=== PATIENT | female | born 1980 | race Caucasian/White ===

== ENCOUNTER → 2017-10-31 | Outpatient (CLI) | payer BC | END | disposition home or self-care (01) | LOC: KCIC US 14:34 | DX: O46.8X1 Other antepartum hemorrhage, first trimester (principal); Z3A.08 8 weeks gestation of pregnancy | CPT/HCPCS: 76801; 76817 ==

== ENCOUNTER → 2017-12-06 | Outpatient (CLI) | payer BC ==
--- NOTE | 2017-12-06 16:20 | KCIC ---
Early OB ultrasound History: Vaginal bleeding in . Uncertain of dates Comparison: Ultrasound OB October 31, 2017. Technique: Transabdominal imaging was performed. Findings: Single live intrauterine is identified with gestational sac, yolk sac, and embryo seen. Mean crown-rump length is 4.48 cm corresponding to 11 weeks 2 days. Estimated date of delivery based on this measurement is June 25, 2018. Embryonic heart motion is 152 bpm. Gestational sac appears regular. No subchorionic hemorrhage is identified. Right ovary measures 2.2 x 3.0 x 1.8 cm and is unremarkable. Left ovary measures 2.8 x 1.8 x 2.3 cm and is unremarkable. Both ovaries demonstrate normal vascular flow upon Doppler interrogation and are without evidence of torsion. Impression: 1. Single live intrauterine . Average ultrasound age is 11 weeks 2 days. Estimated date of delivery is June 25, 2018. There has been appropriate interval growth. Electronically signed by: Chavez Walton MD (12/06/2017 4:17 PM) [email or web address]
== END | disposition home or self-care (01) ==
LOC: KCIC US 07:50
PROVIDERS: ATTEND Family Medicine
DX: O46.8X1 Other antepartum hemorrhage, first trimester (principal); Z3A.11 11 weeks gestation of pregnancy
CPT/HCPCS: 76801

== ENCOUNTER → 2018-02-13 | Outpatient (CLI) | payer OTHER ==
--- NOTE | 2018-02-13 17:44 | KCIC ---
OB ULTRASOUND, > 14 WEEKS Clinical Indication: Supervision of normal . Anatomy and weight. Comparison: None. Technique: Multiple grayscale images, color Doppler, and M-mode images of the uterus are obtained. Findings: There is a single intrauterine gestation in breech presentation. The placenta is anterior in location without evidence of placenta previa. The amount of amniotic fluid appears appropriate. Amniotic fluid index is 15.2 cm. Cervical length is 4 cm. Biometrical data: BPD = 4.9 cm for 20 weeks 5 days. HC = 18.4 cm for 20 weeks 5 days. AC = 16.8 cm for 21 weeks 6 days. FL = 3.4 cm for 20 weeks 5 days. HC/AC ratio = 1.10. Overall, the estimated sonographic gestational age is 21 weeks and 0 days for an estimated date of delivery of June 26, 2018. Estimated weight is 409 +/- 61 grams. A 4 chamber heart is identified with positive cardiac activity. The estimated heart rate is 135 beats per minute. Bilateral upper and lower extremities are identified. There is a three-vessel cord with cord insertion visualized. stomach and urinary bladder are identified. Both kidneys are seen. Question bilateral pelviectasis. The visualized spine and brain are unremarkable. IMPRESSION: 1. Single live intrauterine gestation with estimated sonographic gestational age of 21 weeks and 0 days. 2. Question bilateral pelviectasis. Recommend attention on subsequent imaging. Electronically signed by: Joaquín Khalil MD (02/13/2018 5:40 PM) [id number]
== END | disposition home or self-care (01) ==
LOC: KCIC US 08:03
PROVIDERS: ATTEND Family Medicine
DX: O32.1XX0 Maternal care for breech presentation, not applicable or unspecified (principal); Z3A.21 21 weeks gestation of pregnancy
CPT/HCPCS: 76805

== ENCOUNTER → 2018-03-10 | Outpatient (CLI) | payer OTHER ==
--- NOTE | 2018-03-10 17:28 | KCIC ---
Indication: Follow-up kidney TECHNIQUE: Ultrasound OB COMPARISON: 02/13/2018 FINDINGS: Cervical length measures 4 cm and is closed. Single intrauterine seen in breech presentation the time of scanning with heart rate of 143 bpm. Placenta is anterior in position. Face is seen. Bilateral dilated renal pelvis is seen which is stable from previous exam. Three-vessel cord is seen. The femoral length measures 4.46 cm corresponding to gestation age of 24 weeks 5 days. Abdominal circumference measures 20.21 cm corresponding to gestation age of 24 weeks 6 days. Head circumference measures 22.76 m corresponding to gestation age of 24 weeks 6 days. Biparietal diameter measures 5.85 cm corresponding to gestation age of 24 weeks 0 days. Amniotic fluid index measures 10.1 cm. Estimated weight of 728 g. movement was seen. IMPRESSION: 1. Single live viable intrauterine corresponding to gestation age of 24 weeks 4 days with due date of 06/26/2018. 2. Stable bilateral renal pelviectasis. Electronically signed by: Jam Yang DO (03/10/2018 5:25 PM) [id number]
== END | disposition home or self-care (01) ==
LOC: KCIC US 07:56
PROVIDERS: ATTEND Family Medicine
DX: O09.892 Supervision of other high risk pregnancies, second trimester (principal); Z3A.24 24 weeks gestation of pregnancy
CPT/HCPCS: 76816

== ENCOUNTER → 2018-05-30 | Outpatient (CLI) | payer OTHER ==
--- NOTE | 2018-05-30 17:35 | KCIC ---
Examination: OB > 14 WKS W/TV History: Small for dates Comparison/Correlation: 04/03/2018 OB ultrasound exam Findings: Transabdominal OB ultrasound exam was performed. Maternal cervical length is 3.58 cm. Average ultrasound age of 35 weeks 4 days is noted. Ultrasound EDC is 07/01/2018. Estimated weight is 2702 g +/- 20 g. Cephalic index is 88.7 which is above normal. Head circumference to abdominal circumference ratio is 0.98 which is within normal limits. Femur length to biparietal diameter ratio 78.4 which is within normal limits. Femur length to head circumference ratio is 22.3 and this is within normal limits. Femur length to abdominal circumference ratio is 21.8 and this is within normal limits. Biparietal diameter is 8.8 cm corresponding to 35 weeks 5 days Head circumference is 31.1 cm corresponding to 34 weeks 5 days Abdominal circumference is 31.7 cm corresponding to 35 weeks 5 days Femur length is 6.9 cm corresponding to 35 weeks 4 days Amniotic fluid index is 11.1. heart rate is 1 47 bpm. Impression: Single living intrauterine gestation with average ultrasound age of 35 weeks 4 days. This is 5 days less than clinical age by last menstrual period. Mildly less than expected growth in the interval compared 04/03/2018 ultrasound exam. Electronically signed by: Marky Mcmahon MD (05/30/2018 5:31 PM) [facility]
== END | disposition home or self-care (01) ==
LOC: KCIC US 14:49
PROVIDERS: ATTEND Family Medicine
DX: O36.5930 Maternal care for other known or suspected poor fetal growth, third trimester, not applicable or unspecified (principal); O09.523 Supervision of elderly multigravida, third trimester; Z3A.35 35 weeks gestation of pregnancy
CPT/HCPCS: 76805; 76817

== ENCOUNTER 2018-06-12 16:45 | Observation (INO) | payer OTHER ==
[~2018-06-12] VITALS: Ht 172.7 cm; Wt 78.0 kg
--- NOTE | 2018-06-12 18:32 | RAD ---
Limited OB ultrasound greater than 14 weeks 06/12/2018 Clinical History: Near term with IUGR. Technique: A real-time ultrasound examination of the gravid uterus was performed. Multiple images were obtained. Findings: Comparison study is dated 05/30/2018. There is a single living IUP. The fetus is in a cephalic position. cardiac and somatic activity is seen. The heart rate is 145 beats per minutes. The maternal cervix is not visualized. The placenta is anterior. No abnormality is seen. The amniotic fluid volume is within normal limits. The CHANDLER measures 9.3 cm. Neither maternal ovary is visualized. The following measurements were obtained: BPD 9.53cm 38 weeks 6 days HC 33.48 cm 38weeks to days AC 33.73 cm 37weeks 4 days FL 7.54 cm 38 weeks 4 days The estimated gestational age by ultrasound is 38 weeks 2 days plus or minus a standard deviation of 21 days. The estimated date of delivery by ultrasound on today's study is 06/24/2018. Since the previous examination there has been appropriate interval growth. The estimated weight is 3391 grams +/- 502 grams (7 lbs. 8 oz.). Detailed evaluation of anatomy was not performed due to the advanced age of this gestation. Impression: Single living IUP with an estimated gestational age by ultrasound of 38 weeks 2 days +/- a standard deviation of 21 days. Since the previous examination there has been appropriate interval growth. Electronically signed by: Aurelio Tao MD (06/12/2018 6:30 PM) [facility]
--- NOTE | 2018-06-12 18:34 | RAD ---
Biophysical profile 06/12/2018 Clinical History: Near-term with history of IUGR. Technique: A real-time ultrasound examination of the gravid uterus was performed up to a 30 minute period of observation by the ambulatory technologist. The following parameters were scored at 2 point scale: respiration, tone, breathing and quantitative amniotic fluid volume. Multiple images were obtained. Findings: There is a single living IUP. The fetus is in a cephalic position. The placenta is anterior. Amniotic fluid volume is within normal limits. heart rate is 145 bpm. The CHANDLER measures 9.3 cm. respiration, movement, tone and qualitative amniotic fluid volume score 2 out of 2 points for an 8 out of 8 biophysical profile. Impression: 8 out of 8 biophysical profile. Electronically signed by: Aurelio Tao MD (06/12/2018 6:32 PM) [facility]
== END 2018-06-12 18:20 | disposition home or self-care (01) ==
LOC: US 16:45 → 3 SO LND 17:37
PROVIDERS: ADMIT Family Medicine; ATTEND Family Medicine
DX: O09.93 Supervision of high risk pregnancy, unspecified, third trimester (principal); Z3A.38 38 weeks gestation of pregnancy; Z88.2 Allergy status to sulfonamides; Z88.1 Allergy status to other antibiotic agents
CPT/HCPCS: 76805; 76819; G0379; 59025

== ENCOUNTER 2018-06-20 16:31 | Observation (INO) | payer OTHER ==
--- NOTE | 2018-06-20 17:30 | RAD ---
Indication: Intrauterine growth retardation. Follow-up. TECHNIQUE: Ultrasound for biophysical profile. COMPARISON: 06/12/2018 FINDINGS: Single intrauterine seen in cephalic presentation with heart rate of 137 bpm. Placenta lies anterior in position. The biparietal diameter measures 9.67 cm corresponding to gestation age of 39 weeks 4 days. The head circumference measures 34.11 cm corresponding to gestation age of 39 weeks 2 days. The abdominal circumference measures 34.41 cm corresponding to gestation age of 38 weeks 2 days. The femoral length measures 7.54 cm corresponding to gestation age of 38 weeks 4 days. Estimated weight of 3551 g +/- 5 126 g. Biophysical profile score: breathing movements 2 out of 2. motion 2 out of 2. tone 2 out of 2. Amniotic fluid volume 2 out of 2. IMPRESSION: 1. Single viable live intrauterine with estimated gestation age of 39 weeks 0 day and due date of 06/27/2018. 2. Biophysical profile score 8 out of 8. Electronically signed by: Jam Yang DO (06/20/2018 5:27 PM) [facility]
== END 2018-06-20 18:15 | disposition home or self-care (01) ==
LOC: 3 SO LND 16:31
PROVIDERS: ADMIT Family Medicine; ATTEND Family Medicine
DX: O09.93 Supervision of high risk pregnancy, unspecified, third trimester (principal); Z3A.39 39 weeks gestation of pregnancy
CPT/HCPCS: 76819; G0378; G0379; 59025

== ENCOUNTER 2018-06-23 18:30 | Observation (INO) | payer OTHER ==
[2018-06-23 20:43] LABS: BILIRUBIN,URINE NEGATIVE (NEG); CLARITY,URINE CLEAR; COLOR,URINE YELLOW; NITRITE,URINE NEGATIVE (NEG); PROTEIN,URINE NEGATIVE (NEG-TRACE); UROBILINOGEN,URINE 0.2 mg/dL (0.2 mg/dL)
[2018-06-23 20:53] LABS: BACTERIA,URINE FEW /HPF (0-FEW); RBC,URINE 0 /HPF (0-2); SQUAMOUS EPITHELIAL CELL,UR MOD /LPF
--- NOTE | 2018-06-23 21:24 | RAD ---
Examination: BIOPHYS PROFILE W/O NON STRESS History: bi weekly BPP
high risk preg
multiple miscarriages

6 out 8
hr 127
fluid 14.0
cephalic postiion Comparison/Correlation: 06/20/2018 biophysical profile exam Findings: Limited ultrasound exam was performed for assessment of biophysical profile. Intrauterine gestation with clinical age of 39 weeks 4 days and EDC of 06/26/2018 is present. Amniotic fluid index of 14 is noted. heart rate is 127 bpm. tone 2 breathing 2 movements 0 Amniotic fluid 2 Total score: 6 Anteriorly located placenta is present. Impression: Single living intrauterine gestation with cephalic lie. Biophysical profile total score of 6. Adequate motion is not seen with score of 0. This is decreased compared to previous biophysical profile score of 8 on 06/20/2018. Electronically signed by: Marky Mcmahon MD (06/23/2018 9:21 PM) [facility]
== END 2018-06-23 20:35 | disposition home or self-care (01) ==
LOC: 3 SO LND 18:30
PROVIDERS: ADMIT Family Medicine; ATTEND Family Medicine
DX: Z34.93 Encounter for supervision of normal pregnancy, unspecified, third trimester (principal); Z3A.39 39 weeks gestation of pregnancy
CPT/HCPCS: 76819; 81001; G0378; G0379

== ENCOUNTER 2018-06-26 09:09 | Observation (INO) | payer OTHER | END 2018-06-26 10:50 | disposition home or self-care (01) | LOC: 3 SO LND 09:09 | PROVIDERS: ADMIT Family Medicine; ATTEND Family Medicine | DX: O09.93 Supervision of high risk pregnancy, unspecified, third trimester (principal); O48.0 Post-term pregnancy; Z3A.40 40 weeks gestation of pregnancy | CPT/HCPCS: G0378; G0379; 59025 ==

== ENCOUNTER → 2018-06-26 | Outpatient (CLI) | payer OTHER ==
--- NOTE | 2018-06-26 10:22 | RAD ---
EXAM: biophysical profile. HISTORY: Intrauterine growth restriction. TECHNIQUE: Sonographic imaging of a gravid uterus was performed. COMPARISON: 06/23/2018. FINDINGS: There is a single intrauterine fetus in cephalic presentation with a heart rate of 141 bpm. There is normal breathing motion, body motion and tone and there is normal anatomic fluid volume, for a total biophysical profile of 11/30. The amniotic fluid index is 10.2 cm. There is an anterior placenta without evidence of placenta previa. The biparietal diameter is 9.67 cm, corresponding with 39 weeks and 4 days and the 80th percentile. The head circumference is 34.52 cm, corresponding with 40 weeks and 0 days and the 46th percentile. The abdominal circumference is 35.54 cm, corresponding with 39 weeks and 3 days and the 62nd percentile. The femoral length is 7.72 cm, corresponding with 39 weeks and 3 days and the 49th percentile. The estimated gestational age based on combined ultrasound measurements is 39 weeks and 4 days and the estimated weight is 3813 g. This corresponds with the 72nd percentile for an estimated gestational age based on LMP of 40 weeks and 0 days. The cephalic index is elevated at 85.6. This maybe due to measurement error or slight brachycephaly. The anatomy is not formally assessed. The cervix is obscured. IMPRESSION: 1. Single intrauterine fetus in cephalic presentation with a heart rate of 141 bpm and gestational age based on ultrasound measurements of 39 weeks and 4 days. The estimated weight is at the 72nd percentile for an estimated gestational age based on LMP of 40 weeks and 0 days. There is no sonographic evidence of IUGR. 2. Normal biophysical profile of 11/30. 3. Note is made that the anatomy is not formally assessed on this exam. The previously demonstrated pelviectasis is not assessed on this exam. Electronically signed by: Dariela Mon MD (06/26/2018 10:20 AM) [place] [id number]
== END | disposition home or self-care (01) ==
LOC: US 09:20
PROVIDERS: ATTEND Family Medicine
DX: O36.5930 Maternal care for other known or suspected poor fetal growth, third trimester, not applicable or unspecified (principal); Z3A.39 39 weeks gestation of pregnancy
CPT/HCPCS: 76819

== ENCOUNTER 2018-06-29 23:34 | Inpatient (IN) | payer OTHER ==
[~2018-06-29] VITALS: Ht 172.7 cm; Wt 78.0 kg
[2018-06-29] MEDS ORDERED: IV RINGERS,LACTATED 1000ML 1,000 ML IV PRN (23:45)
[2018-06-30 00:24] LABS: AMNIO PT POSITIVE
[2018-06-30 00:50] LABS: BILIRUBIN,URINE NEGATIVE (NEG); CLARITY,URINE CLOUDY; COLOR,URINE YELLOW; NITRITE,URINE NEGATIVE (NEG); PROTEIN,URINE NEGATIVE (NEG-TRACE); UROBILINOGEN,URINE 0.2 mg/dL (0.2 mg/dL)
[2018-06-30 01:00] VITALS: BP 143/75
[2018-06-30 01:00] LABS: AMORPHOUS SEDIMENT,UR PRESENT /HPF; BACTERIA,URINE 0 /HPF (0-FEW); SQUAMOUS EPITHELIAL CELL,UR FEW /LPF; WBC,URINE 0 /HPF (0-4)
[2018-06-30] MEDS ORDERED: LIDOCAINE 1% PF 30 ML VIAL. ONE (01:25)
[2018-06-30] MEDS ORDERED: OXYTOCIN 30 UNIT/500 ML PREMIX 500 ML IV ONE (01:26)
[2018-06-30] MEDS ORDERED: ONDANSETRON PF 4 MG/2 ML VIAL. IV PRN (01:30)
[2018-06-30] MEDS ORDERED: IV RINGERS,LACTATED 1000ML 1,000 ML IV SCH (01:30)
[2018-06-30] MEDS ORDERED: TERBUTALINE 1 MG/ML VIAL. SQ PRN (01:30)
[2018-06-30] MEDS ORDERED: 0.9 % SODIUM CHLORIDE 10 ML DISP.SYRIN. IV PRN ×2 (01:30→04:15)
[2018-06-30] MEDS ORDERED: OXYTOCIN 30 UNIT/500 ML PREMIX 500 ML IV PRN ×2 (01:30→04:15)
[2018-06-30] MEDS ORDERED: IBUPROFEN 400 MG TABLET. PO PRN (01:30)
[2018-06-30] MEDS ORDERED: LIDOCAINE 1% PF 30 ML VIAL. INJ PRN (01:30)
[2018-06-30] MEDS ORDERED: fentaNYL PF VIAL 100 MCG/2 ML VIAL IV PRN ×3 (01:30)
[2018-06-30 03:46] LABS: BASO % 0 % (0-3); EOS % 0 % (0-3); HEMATOCRIT 41.5 % (36.0-47.0); HEMOGLOBIN 13.7 g/dL (12.0-15.5); LYMPH # 1.3 x10^3/uL (1.0-4.8); LYMPH % 6 % (24-48); MEAN CORPUSCULAR HEMOGLOBIN 30 pg (25-35); MEAN CORPUSCULAR HGB CONC 33 g/dL (31-37); MEAN CORPUSCULAR VOLUME 91 fL (79-100); MONO # 0.6 x10^3/uL (0.0-1.1); MONO % 3 % (0-9); NEUT # 17.9 x10^3uL (1.8-7.7); NEUT % 91 % (31-73); PLATELET COUNT 224 x10^3/uL (140-400); RED BLOOD COUNT 4.54 x10^6/uL (3.50-5.40); RED CELL DISTRIBUTION WIDTH 13.7 % (11.5-14.5); WHITE BLOOD COUNT 19.8 x10^3/uL (4.0-11.0)
--- NOTE | 2018-06-30 04:09 | PDOC1 ---
OB - History Hx of Present Care: Good Care Ultrasounds: Abnormal US findings Obstetrical Complications: Growth Restriction Medical Complications: None Past Family/Social History * Past Medical, Surgical, Family and Obstetric Histories reviewed from chart. Blood Type: O+ Rubella: Immune RPR/VDRL: Negative GBS Status: Negative HBsAG: Negative OB - Chief Complaint & HPI Date of Admission: Date of Admission: Jun 29, 2018 at 23:34 Chief Complaint/History : 4 Para: 1 EDC: Jun 25, 2018 EGA: 40.5 Reason for admission: rupture of membranes Admission Nurse Assessment Rev: No OB - Admission Exam Physical Exam Vitals: VS - Last 72 Hours, by Label Date Time Temp Pulse Resp B/P (MAP) Pulse Ox O2 Delivery O2 Flow Rate FiO2 06/30/18 01:00 98.0 66 18 143/75 (97) Room Air 98.0 HEENT: Normal, Nasal Mucosa Normal, Oropharynx Normal, Moist Membranes, Fontanelles Normal Heart: Regular Rate, No Murmurs, No Gallops, No Rubs Lungs: Clear, Equal Abdomen: Gravid Extremities: Normal Pulses, No tenderness or swelling Reflexes: Normal Cervical Dilatation: 3cm Effacement: 100% Station: -2 Membranes: Ruptured Amniotic Fluid: Clear Heart Rate: Normal Accelerations: Accelerations Present Decelerations: No decelerations Short Term Variability: Present Cable Placer Variability: Moderate Contractions on Admission: < 5 Minutes Apart Date/Time Contractions Began;: 2129 Frequency of Contractions: q2min Intensity: Moderate A/P Pt is a 37yo admitted for PROM 1)PROM 2)GBS negative BRUCE ALVA MD Jun 30, 2018 04:09
--- NOTE | 2018-06-30 04:14 | PDOC ---
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
[2018-06-30] MEDS ORDERED: MAG HYDROX/ALUMINUM HYD/SIMETH 30 ML ORAL.SUSP PO PRN (04:15)
[2018-06-30] MEDS ORDERED: ZOLPIDEM 5 MG TABLET. PO PRN (04:15)
[2018-06-30] MEDS ORDERED: diphenhydrAMINE HCL 25 MG CAPSULE PO PRN (04:15)
[2018-06-30] MEDS ORDERED: BENZOCAINE 20% TOPICAL AEROSOL SPRAY 57GM CAN. TP PRN (04:15)
[2018-06-30] MEDS ORDERED: HYDROCORTISONE 1% TOPICAL OINTMENT 30GM TUBE. TP PRN (04:15)
[2018-06-30] MEDS ORDERED: MMR per PROTOCOL. MC PRN (04:15)
[2018-06-30] MEDS ORDERED: SIMETHICONE 80 MG TAB.CHEW PO PRN (04:15)
[2018-06-30] MEDS ORDERED: PHENYLEPH/MINERAL OIL/PETROLAT RECTAL OINTMENT 28GM TUBE. RC PRN (04:15)
[2018-06-30] MEDS ORDERED: ACETAMINOPHEN 325 MG TABLET. PO PRN (04:15)
[2018-06-30 05:26] LABS: % BANDS 2 % (0-9); % LYMPHS 4 % (24-48); % MONOS 2 % (0-10); % SEGS 92 % (35-66); PLT ESTIMATE ADEQUATE (ADEQUATE)
[2018-06-30 06:05] VITALS: BP 125/64
[2018-06-30 07:15] VITALS: BP 90/47
[2018-06-30] MEDS: IBUPROFEN 400 MG TABLET. PO SCH (16:51)
[2018-06-30] MEDS: DOCUSATE SODIUM 100 MG CAPSULE. PO PRN ×2 (16:51→21:55)
[2018-06-30 17:35] VITALS: BP 104/64
[2018-06-30 19:33] LABS: BASO % 0 % (0-3); EOS % 0 % (0-3); HEMATOCRIT 37.3 % (36.0-47.0); HEMOGLOBIN 12.4 g/dL (12.0-15.5); LYMPH # 2.1 x10^3/uL (1.0-4.8); LYMPH % 14 % (24-48); MEAN CORPUSCULAR HEMOGLOBIN 31 pg (25-35); MEAN CORPUSCULAR HGB CONC 33 g/dL (31-37); MEAN CORPUSCULAR VOLUME 92 fL (79-100); MONO % 7 % (0-9); NEUT # 11.7 x10^3uL (1.8-7.7); NEUT % 79 % (31-73); PLATELET COUNT 230 x10^3/uL (140-400); RED BLOOD COUNT 4.07 x10^6/uL (3.50-5.40); RED CELL DISTRIBUTION WIDTH 13.5 % (11.5-14.5); WHITE BLOOD COUNT 14.8 x10^3/uL (4.0-11.0)
[2018-06-30] MEDS: MAGNESIUM HYDROXIDE 2,400 MG/30 ML ORAL.SUSP. PO PRN (21:55)
[2018-06-30 23:00] VITALS: BP 111/68
[2018-07-01] MEDS: IBUPROFEN 400 MG TABLET. PO SCH ×3 (04:06→23:02)
[2018-07-01 04:30] VITALS: BP 104/70
[2018-07-01 11:20] VITALS: BP 104/64
--- NOTE | 2018-07-01 12:06 | PDOC ---
OB Progress Note Date of Service 06/30/18 Time of Evaluation 1130 Date: 06/30/18 Time: 030 Notes Pt doing well this morning. Pain well controlled with Ibuprofen. Bleeding less than a period. is going well. Having difficulties controlling her external anal sphincter OB VITAL SIGNS: Temperature (98.3), Blood Pressure (104/70), Pulse (75), O2 Sat (98) Lab Laboratory Tests Test 06/30/18 00:05 06/30/18 00:40 06/30/18 03:30 06/30/18 19:00 Amniotic Fluid Swab Test Positive Urine Collection Type Unknown Urine Color Yellow Urine Clarity Cloudy Urine pH 7.0 Urine Specific [place] 1.015 Urine Protein Negative mg/dL (NEG-TRACE) Urine Glucose (UA) Negative mg/dL (NEG) Urine Ketones (Stick) Negative mg/dL (NEG) Urine Blood Small (NEG) Urine Nitrite Negative (NEG) Urine Bilirubin Negative (NEG) Urine Urobilinogen Dipstick 0.2 mg/dL (0.2 mg/dL) Urine Leukocyte Esterase Negative (NEG) Urine RBC 1-2 /HPF (0-2) Urine WBC 0 /HPF (0-4) Urine Squamous Epithelial Cells Few /LPF Urine Amorphous Sediment Present /HPF Urine Bacteria 0 /HPF (0-FEW) White Blood Count 19.8 x10^3/uL (4.0-11.0) 14.8 x10^3/uL (4.0-11.0) Red Blood Count 4.54 x10^6/uL (3.50-5.40) 4.07 x10^6/uL (3.50-5.40) Hemoglobin 13.7 g/dL (12.0-15.5) 12.4 g/dL (12.0-15.5) Hematocrit 41.5 % (36.0-47.0) 37.3 % (36.0-47.0) Mean Corpuscular Volume 91 fL (79-100) 92 fL (79-100) Mean Corpuscular Hemoglobin 30 pg (25-35) 31 pg (25-35) Mean Corpuscular Hemoglobin Concent 33 g/dL (31-37) 33 g/dL (31-37) Red Cell Distribution Width 13.7 % (11.5-14.5) 13.5 % (11.5-14.5) Platelet Count 224 x10^3/uL (140-400) 230 x10^3/uL (140-400) Neutrophils (%) (Auto) 91 % (31-73) 79 % (31-73) Lymphocytes (%) (Auto) 6 % (24-48) 14 % (24-48) Monocytes (%) (Auto) 3 % (0-9) 7 % (0-9) Eosinophils (%) (Auto) 0 % (0-3) 0 % (0-3) Basophils (%) (Auto) 0 % (0-3) 0 % (0-3) Neutrophils # (Auto) 17.9 x10^3uL (1.8-7.7) 11.7 x10^3uL (1.8-7.7) Lymphocytes # (Auto) 1.3 x10^3/uL (1.0-4.8) 2.1 x10^3/uL (1.0-4.8) Monocytes # (Auto) 0.6 x10^3/uL (0.0-1.1) 1.0 x10^3/uL (0.0-1.1) Eosinophils # (Auto) 0.0 x10^3/uL (0.0-0.7) 0.0 x10^3/uL (0.0-0.7) Basophils # (Auto) 0.0 x10^3/uL (0.0-0.2) 0.0 x10^3/uL (0.0-0.2) Segmented Neutrophils % 92 % (35-66) Band Neutrophils % 2 % (0-9) Lymphocytes % 4 % (24-48) Monocytes % 2 % (0-10) Platelet Estimate Adequate (ADEQUATE) Treponema pallidum Antibody Nonreactive (Nonreactive) Laboratory Tests Test 06/30/18 19:00 White Blood Count 14.8 x10^3/uL (4.0-11.0) Red Blood Count 4.07 x10^6/uL (3.50-5.40) Hemoglobin 12.4 g/dL (12.0-15.5) Hematocrit 37.3 % (36.0-47.0) Mean Corpuscular Volume 92 fL (79-100) Mean Corpuscular Hemoglobin 31 pg (25-35) Mean Corpuscular Hemoglobin Concent 33 g/dL (31-37) Red Cell Distribution Width 13.5 % (11.5-14.5) Platelet Count 230 x10^3/uL (140-400) Neutrophils (%) (Auto) 79 % (31-73) Lymphocytes (%) (Auto) 14 % (24-48) Monocytes (%) (Auto) 7 % (0-9) Eosinophils (%) (Auto) 0 % (0-3) Basophils (%) (Auto) 0 % (0-3) Neutrophils # (Auto) 11.7 x10^3uL (1.8-7.7) Lymphocytes # (Auto) 2.1 x10^3/uL (1.0-4.8) Monocytes # (Auto) 1.0 x10^3/uL (0.0-1.1) Eosinophils # (Auto) 0.0 x10^3/uL (0.0-0.7) Basophils # (Auto) 0.0 x10^3/uL (0.0-0.2) Medications Current Medications Ringer's Solution 1,000 ml @ 125 mls/hr Q8H PRN IV hydration; Start 06/29/18 at 23:45 Sodium Chloride (Normal Saline Flush) 3 ml QSHIFT PRN IV AFTER MEDS AND BLOOD DRAWS; Start 06/30/18 at 01:30 Ringer's Solution 1,000 ml @ 125 mls/hr Q8H IV Last administered on 06/30/18at 03:07; Start 06/30/18 at 01:30 Fentanyl Citrate (Fentanyl 2ml Vial) 50 mcg PRN Q10MIN PRN IV Labor pain 1st Choice; Start 06/30/18 at 01:30 Fentanyl Citrate (Fentanyl 2ml Vial) 75 mcg PRN Q20MIN PRN IV Labor pain 2nd Choice; Start 06/30/18 at 01:30 Fentanyl Citrate (Fentanyl 2ml Vial) 100 mcg PRN Q20MIN PRN IV Labor pain 3rd Choice; Start 06/30/18 at 01:30 Ondansetron HCl (Zofran) 4 mg PRN Q4HRS PRN IV NAUSEA/VOMITING; Start 06/30/18 at 01:30 Terbutaline Sulfate (Brethine) 0.25 mg 1X PRN PRN SQ SEE COMMENTS; Start at 01:30; Stop 07/01/18 at 01:29; Status DC Lidocaine HCl (Xylocaine 1% Pf 30ml Vial) 30 ml 1X PRN PRN INJ SEE COMMENTS Last administered on 06/30/18at 03:09; Start 06/30/18 at 01:30; Stop 07/02/18 at 01 :29 Oxytocin/Sodium Chloride 500 ml @ 0 mls/hr CONT PRN PRN IV Post delivery bleeding Last administered on 06/30/18at 03:07; Start 06/30/18 at 01:30 Ibuprofen (Motrin) 800 mg PRN Q6HRS PRN PO PAIN MODERATE/INFLAMMATION; Start at 01:30; Stop 06/30/18 at 14:15; Status DC Lidocaine HCl (Xylocaine 1% Pf 30ml Vial) 30 ml STK-MED ONCE .ROUTE ; Start 06/30 at 01:25; Stop 06/30/18 at 01:26; Status DC Oxytocin/Sodium Chloride 500 ml @ As Directed STK-MED ONCE IV ; Start 06/30/18 at 01:26; Stop 06/30/18 at 01:27; Status DC Sodium Chloride (Normal Saline Flush) 10 ml QSHIFT PRN IV AFTER MEDS AND BLOOD DRAWS; Start 06/30/18 at 04:15 Oxytocin/Sodium Chloride 500 ml @ 62.5 mls/hr CONT PRN IV SEE I/O RECORD; Start 06/30/18 at 04:15; Stop 06/30/18 at 12:14; Status DC Acetaminophen (Tylenol) 650 mg PRN Q6HRS PRN PO MILD PAIN / TEMP Last administered on 06/30/18at 21:55; Start 06/30/18 at 04:15 Ibuprofen (Motrin) 800 mg Q8HRS PO Last administered on 07/01/18at 04:06; Start 06/30/18 at 06:00 Docusate Sodium (Colace) 100 mg PRN BID PRN PO CONSTIPATION 1st Choice Last administered on 06/30/18 21:55; Start 06/30/18 at 04:15 Magnesium Hydroxide (Milk Of Magnesia) 2,400 mg PRN DAILY PRN PO CONSTIPATION 2nd Choice Last administered on 06/30/18at 21:55; Start 06/30/18 at 04:15 Al Hydroxide/Mg Hydroxide (Mylanta Plus Xs) 30 ml PRN Q4HRS PRN PO HEARTBURN / GAS; Start 06/30/18 at 04:15 Simethicone (Gas-X) 80 mg PRN AFTMEALHC PRN PO GAS / BLOATING; Start 06/30/18 at 04:15 Diphenhydramine HCl (Benadryl) 25 mg PRN Q6HRS PRN PO ITCHING; Start 06/30/18 at 04:15 Benzocaine (Americaine) 1 spray PRN QID PRN TP TOPICAL PAIN; Start 06/30/18 at 04:15 Phenyleph/Shark Oil/Min Oil/Petrol (Preparation H) 1 [place] PRN QID PRN RC RECTAL PAIN Last administered on 06/30/18at 21:55; Start 06/30/18 at 04:15 Hydrocortisone (Cortaid) 1 [place] PRN QID PRN TP PERINEAL PAIN; Start 06/30/18 at 04:15 Zolpidem Tartrate (Ambien) 5 mg PRN QHS PRN PO INSOMNIA, MAY REPEAT X1; Start 06/30/18 at 04:15 Info (Do NOT chart on this placeholder) 1 ea 1X PRN PRN MC SEE COMMENTS; Start 06/30/18 at 04:15 Info (Do NOT chart on this placeholder) 1 ea 1X PRN PRN MC SEE COMMENTS; Start 06/30/18 at 04:15 Exam GEN: NAD, AOx3 HEENT: MMM, EOMI, no scleral icterus/injection Cardiac: RRR, no M/R/G Lungs: CTAB Abd: top of fundus 4cm below umbilicus Ext: no erythema/edema LE bilaterally Anus: 2 external hemorrhoids, one is mildly irritated, good anal sphincter tone Assessment Pt is a 37yo [id number] s/p at 40.5wga 1) 2)IUGR-placenta appears small 3)GBS negative 4) 5)Hx of bilateral renal pelviectasis- followed with MFM and repeat scans were normal BRUCE ALVA MD Jul 01, 2018 12:06
[2018-07-01 15:20] VITALS: BP 102/62
[2018-07-01 22:30] VITALS: BP 121/77
[2018-07-01] MEDS: DOCUSATE SODIUM 100 MG CAPSULE. PO PRN (23:01)
[2018-07-01] MEDS: MAGNESIUM HYDROXIDE 2,400 MG/30 ML ORAL.SUSP. PO PRN (23:01)
[2018-07-02 06:00] VITALS: BP 112/70
[2018-07-02] MEDS: DOCUSATE SODIUM 100 MG CAPSULE. PO PRN (08:39)
[2018-07-02] MEDS: IBUPROFEN 400 MG TABLET. PO SCH (08:40)
--- NOTE | 2018-07-02 11:01 | PDOC3 ---
OB DISCHARGE SUMMARY DATE OF ADMISSION: 06/30/18 DATE OF DISCHARGE: 07/02/18 REASON FOR ADMISSION: Onset of labor, SROM PROCEDURES: Mgmt of OB Complications, Biophysicial Profile INTRAPARTUM PROCEDURES: Spontanous Vag Deliv, Perineal Laceration DISCHARGE DIAGNOSIS: Post Term DISCHARGE INFORMATION: Activity (As tolerated), Diet (Regular), Medications ( Ibuprofen 800mg qday, Docusate 100mg qday), Instructions (F/u with Dr. Alva in 4-6 weeks), Discharge to (Home) HOSPITAL COURSE Pt is a 37yo [id number] s/p at 40.5wga 1) 2)IUGR-placenta appeared small 3)GBS negative 4) 5)Hx of bilateral renal pelviectasis- followed with MFM and repeat scans were normal BRUCE ALVA MD Jul 02, 2018 11:01
[2018-07-02 12:20] VITALS: BP 116/70
== END 2018-07-02 16:30 | disposition home or self-care (01) | DRG 807 ==
LOC: OBSVTOIN 23:34 → 3 SO LND 23:34
PROVIDERS: ADMIT Family Medicine; ATTEND Family Medicine
PROC: 10E0XZZ Delivery of Products of Conception, External Approach (ICD-10-PCS; principal; 2018-06-30)
PROC: 0KQM0ZZ Repair Perineum Muscle, Open Approach (ICD-10-PCS; 2018-06-30)
DX: O36.5930 Maternal care for other known or suspected poor fetal growth, third trimester, not applicable or unspecified (principal); Z37.0 Single live birth; O66.0 Obstructed labor due to shoulder dystocia; O69.81X0 Labor and delivery complicated by cord around neck, without compression, not applicable or unspecified; O70.1 Second degree perineal laceration during delivery; Z3A.40 40 weeks gestation of pregnancy
CPT/HCPCS: 36415; 81001; 84112; 85007; 85025; 86592; 86850; 86900; 86901; J2590; J7120

== ENCOUNTER → 2018-09-11 | Outpatient (CLI) | payer OTHER ==
--- NOTE | 2018-09-12 09:49 | KCIC ---
MRI Lumbar Spine without contrast History: Fecal incontinence, pelvic numbness since childbirth: Technique: Multiplanar, multi sequential noncontrast MR imaging was performed of the lumbar spine. Comparison: None Findings: Lumbar vertebral body stature and AP alignment are maintained. Intervertebral disc spaces are relatively preserved, very mild disc desiccation L4-5. Conus terminates near the superior aspect of L1. There is no convincing marrow edema. There is no abnormal fluid collection of the lumbar spinal canal. L3-L4: Spinal canal and neural foramina are adequate. L4-L5: There is negligible posterior bulge. Spinal canal and neural foramina are adequate. L5-S1: Spinal canal and neural foramina are adequate. Impression: 1. There is no significant lumbar spinal stenosis or neural foramina compromise. Electronically signed by: Nate Camejo MD (09/11/2018 4:04 PM) [email or web address]
--- NOTE | 2018-09-12 09:50 | KCIC ---
EXAM: MRI pelvis without contrast CLINICAL HISTORY: Low Back Pain COMPARISON: None TECHNIQUE: Multiplanar, multisequence MRI imaging of the posterior pelvis/SI joints was performed without IV contrast. FINDINGS: SI joints: Normal bone marrow signal at the posterior margin of the SI joints bilaterally. No bone marrow edema. Physiologic joint fluid bilaterally. Cortices are well-defined. Negative erosive changes. Posterior pelvis bony structure: Normal bone marrow signal. Negative focal bone marrow replacement. Negative acute or subacute fracture. Negative sacrococcygeal dissociation. Sharp angulation of the sacrococcygeal junction without associated edema likely from old injury. Presacral soft tissues: Negative presacral inflammatory type changes or fluid collection. Negative dominant mass lesion. Additional findings: Small volume free pelvic fluid is likely physiologic. No pelvic lymphadenopathy. Visualized portions of the lumbosacral plexus are grossly normal in signal and morphology without associated mass lesion. Please see concurrently performed MRI lumbar spine for full lumbar spine details. IMPRESSION: 1. Normal MR Imaging of the SI joints without findings of erosive/inflammatory arthropathy. 2. Small volume free pelvic fluid likely physiologic. 3. On the visualized portion of the pelvis, no abnormal pelvic mass is identified. 4. Sharp angulation of the sacrococcygeal junction without associated edema likely from old injury. Electronically signed by: Koko Garner MD (09/12/2018 8:41 AM) [email or web address]
== END | disposition home or self-care (01) ==
LOC: KCIC MRI 15:01
PROVIDERS: ATTEND Family Medicine
DX: M43.8X8 Other specified deforming dorsopathies, sacral and sacrococcygeal region (principal); M25.452 Effusion, left hip; M25.451 Effusion, right hip; R15.9 Full incontinence of feces
CPT/HCPCS: 72148; 72195

== ENCOUNTER → 2019-01-15 | Outpatient (CLI) | payer OTHER ==
--- NOTE | 2019-01-15 16:01 | RAD ---
Examination: BREAST RIGHT History: Palpable abnormality involving the right upper breast over the past few weeks. It has improved with antibiotic therapy but appears to have increased again after cessation of antibiotic therapy. Comparison/Correlation: None Findings: Ultrasound imaging of the right anterior breast was performed from the 10:00 o'clock region. There is no mass or fluid collection identified. Multiple dilated ducts are noted in this region. No subcutis edema delineated. Upon physical exam and myself, there is greater firmness of the breast to palpation in this region. Ultrasound imaging of the right axilla is unremarkable with few benign-appearing nonenlarged lymph nodes. Impression: BI-RADS Category 3-probably benign. Firmness of the breasts is noted anteriorly from the 10:00 to 2:00 region. No mass or other suspicious finding on ultrasound exam although ductal ectasia is present. Clinical follow-up and clinical management is recommended in determining the need for biopsy. Electronically signed by: Marky Mcmahon MD (01/15/2019 3:58 PM) [facility]
== END | disposition home or self-care (01) ==
LOC: US 14:37
PROVIDERS: ATTEND Nurse Practitioner Gerontology
DX: N60.41 Mammary duct ectasia of right breast (principal)
CPT/HCPCS: 76641

== ENCOUNTER → 2019-05-30 | Outpatient (CLI) | payer OTHER ==
--- NOTE | 2019-05-30 08:48 | KCIC ---
Right breast ultrasound: Reason for examination: Follow-up for history of mastitis. Patient is still breast-feeding. Comparison is made to previous study dated 01/15/2019. Right whole breast ultrasound including evaluation of all 4 quadrants and the retroareolar and axillary regions of the right breast was performed. There is some ductal ectasia consistent with history of lactating. There are no discrete cystic or solid nodules. No abnormal appearing lymph nodes are seen in the axilla. IMPRESSION: No cystic or solid mass is seen in the breast. Recommend clinical follow-up and routine mammographic exam at age 41. BI-RADS Category 2: Benign. "Our facility is accredited by the [employer] Mammography Program." This patient's information has been entered into a reminder system for the patient to be notified with the results of her examination and a target date for the next mammogram. Electronically signed by: Margot Sewell MD (05/30/2019 8:45 AM) [id number]
== END | disposition home or self-care (01) ==
LOC: KCIC US 08:08
PROVIDERS: ATTEND Surgery
DX: N60.41 Mammary duct ectasia of right breast (principal)
CPT/HCPCS: 76641